=== PATIENT | female | born 1985 | race Caucasian/White ===

== ENCOUNTER 2017-01-05 10:40 | Emergency (ER) | payer SELFPAY ==
[2017-01-05 11:48] LABS: Basophils % (Auto) 0.3 % (0.0-1.8); Hematocrit 35.2 % (30.3-42.9); Hemoglobin 11.1 gm/dl (10.1-14.3); Mean Corpuscular HGB Conc 32 % (30-34); Mean Corpuscular Volume 72 fl (79-97); Platelet Count 161 K/mm3 (140-440); Red Blood Count 4.93 M/mm3 (3.65-5.03); Red Cell Distribution Width 14.7 % (13.2-15.2); White Blood Count 9.9 K/mm3 (4.5-11.0)
[2017-01-05 11:51] LABS: Mean Corpuscular Hemoglobin 23 pg (28-32)
[2017-01-05 12:02] LABS: Anion Gap 16 mmol/L; Blood Urea Nitrogen 9 mg/dL (7-17); Carbon Dioxide 22 mmol/L (22-30); Chloride 102.7 mmol/L (98-107); Glucose 82 mg/dL (65-100); Potassium 3.6 mmol/L (3.6-5.0); Sodium 137 mmol/L (137-145)
[2017-01-05 14:27] LABS: Bilirubin,Urine NEG (Negative); Blood,Urine NEG (Negative); Ketones,Urine NEG (Negative); Leukocyte Esterase,Urine MOD (Negative); Mucus,Urine 2+ /HPF; Nitrite,Urine NEG (Negative); Urobilinogen,Urine < 2.0 mg/dL (<2.0)
[2017-01-05] MEDS ORDERED: ZOFRAN ODT PO ONE (17:11)
--- NOTE | 2017-01-05 17:11 | Emergency Department Report ---
HPI - General Chief Complaint: Fever Time Seen by Provider: 01/05/17 16:20 - HPI HPI: Patient is a 31-year-old female presents to ED complaining of nausea 1 week. Patient states she is unable to keep most fluids down or water. She states her last miss her period was 10/27/2016. Patient states she did not think anything about it. She has a history of abnormal menstrual cycles. Patient denies fevers/chills/vomiting/chest pain/abdominal pain/vaginal bleeding or vaginal discharge ED Past Medical Hx - Past Medical History Previous Medical History?: No - Surgical History Past Surgical History?: No - Social History Smoking Status: Never Smoker Substance Use Type: None - Medications Home Medications: Home Medications Medication Instructions Recorded Confirmed Last Taken Type Acetaminophen [Acetaminophen TAB] 500 mg PO Q6HR #30 tablet 01/05/17 Unknown Rx Doxylamine/Pyridoxine HCl 2 each PO QHS #40 tablet. 01/05/17 Unknown Rx [Diclegis Dr 10-10 mg Tablet] Pnv95/Ferrous Fumarate/FA 1 each PO DAILY #40 tablet 01/05/17 Unknown Rx [ Formula Tablet] ED Review of Systems ROS: Stated complaint: FEVER & NAUSEA Other details as noted in HPI Constitutional: denies: chills, fever Eyes: denies: eye pain, eye discharge, vision change ENT: denies: ear pain, throat pain Respiratory: denies: cough, shortness of breath, wheezing Cardiovascular: denies: chest pain, palpitations Endocrine: no symptoms reported Gastrointestinal: denies: abdominal pain, nausea, diarrhea Genitourinary: denies: urgency, dysuria, discharge Musculoskeletal: denies: back pain, joint swelling, arthralgia Skin: denies: rash, lesions Neurological: denies: headache, weakness, paresthesias Psychiatric: denies: anxiety, depression Hematological/Lymphatic: denies: easy bleeding, easy bruising Physical Exam - Physical Exam Vital Signs: Vital Signs 01/05/17 11:11 Temperature 97.5 F L Pulse Rate 76 Respiratory 18 Rate Blood Pressure 103/63 O2 Sat by Pulse 100 Oximetry Physical Exam: GENERAL: Alert and oriented x3, no apparent distress, Normal Gait, atraumatic. HEAD: Head is normocephalic and a-traumatic. EYES: Extra ocular muscles are intact. Pupils are equal, round, and reactive to light and accommodation. EARS: symetrical, atraumatic, non tender, ear canal clear and moderate cerumen, tympanic membrance non inflamed. gross auditory nml bilaterally. MOUTH:Mouth is well hydrated and one cold sore lesion at upper right lip. Tonsils nonerythematous or swollen, Uvula midline, Tongue not elevated. Mucous membranes are moist. Posterior pharynx clear, no exudate or lesions. Patent airways. NECK: Supple. Non edematous, No lymphadenopathy or thyromegaly. No C-spine tenderness LUNGS: Symetrical with respiration, No wheezing, no rales or crackles, CTAB. HEART: S1, S2 present, regular rate and rhythm without murmur, no rubs, no gallops. Non tender to palpation ABDOMEN: No organomegaly was noted,Positive bowel sounds, soft, and non- distended. . Nontender to palpation on all Quadrants, NO CVA tenderness. SKIN: Warm and dry, No lesions, No ulceration or induration present. ED Course Vital Signs 01/05/17 11:11 Temperature 97.5 F L Pulse Rate 76 Respiratory 18 Rate Blood Pressure 103/63 O2 Sat by Pulse 100 Oximetry ED Medical Decision Making - Lab Data Result diagrams: 01/05/17 11:20 01/05/17 11:20 Laboratory Last Values WBC 9.9 K/mm3 (4.5-11.0) 01/05/17 11:20 RBC 4.93 M/mm3 (3.65-5.03) 01/05/17 11:20 Hgb 11.1 gm/dl (10.1-14.3) 01/05/17 11:20 Hct 35.2 % (30.3-42.9) 01/05/17 11:20 MCV 72 fl (79-97) L 01/05/17 11:20 MCH 23 pg (28-32) L 01/05/17 11:20 MCHC 32 % (30-34) 01/05/17 11:20 RDW 14.7 % (13.2-15.2) 01/05/17 11:20 Plt Count 161 K/mm3 (140-440) 01/05/17 11:20 Lymph % (Auto) 24.5 % (13.4-35.0) 01/05/17 11:20 [place] % (Auto) 7.7 % (0.0-7.3) H 01/05/17 11:20 Eos % (Auto) 1.0 % (0.0-4.3) 01/05/17 11:20 Baso % (Auto) 0.3 % (0.0-1.8) 01/05/17 11:20 Lymph # 2.4 K/mm3 (1.2-5.4) 01/05/17 11:20 [place] # 0.8 K/mm3 (0.0-0.8) 01/05/17 11:20 Eos # 0.1 K/mm3 (0.0-0.4) 01/05/17 11:20 Baso # 0.0 K/mm3 (0.0-0.1) 01/05/17 11:20 Seg Neutrophils % 66.5 % (40.0-70.0) 01/05/17 11:20 Seg Neutrophils # 6.6 K/mm3 (1.8-7.7) 01/05/17 11:20 Sodium 137 mmol/L (137-145) 01/05/17 11:20 Potassium 3.6 mmol/L (3.6-5.0) 01/05/17 11:20 Chloride 102.7 mmol/L (98-107) 01/05/17 11:20 Carbon Dioxide 22 mmol/L (22-30) 01/05/17 11:20 Anion Gap 16 mmol/L 01/05/17 11:20 BUN 9 mg/dL (7-17) 01/05/17 11:20 Creatinine 0.6 mg/dL (0.7-1.2) L 01/05/17 11:20 Estimated GFR > 60 ml/min 01/05/17 11:20 BUN/Creatinine Ratio 15.00 % 01/05/17 11:20 Glucose 82 mg/dL (65-100) 01/05/17 11:20 Calcium 9.0 mg/dL (8.4-10.2) 01/05/17 11:20 HCG, Quant 168492 mIU/mL (0-4) H 01/05/17 17:47 Urine Color Tia (Yellow) 01/05/17 Unknown Urine Turbidity Cloudy (Clear) 01/05/17 Unknown Urine pH 5.0 (5.0-7.0) 01/05/17 Unknown Ur Specific [place] 1.032 (1.003-1.030) H 01/05/17 Unknown Urine Protein 30 mg/dl mg/dL (Negative) 01/05/17 Unknown Urine Glucose (UA) Neg mg/dL (Negative) 01/05/17 Unknown Urine Ketones Neg mg/dL (Negative) 01/05/17 Unknown Urine Blood Neg (Negative) 01/05/17 Unknown Urine Nitrite Neg (Negative) 01/05/17 Unknown Ur Reducing Substances Not Reportable 01/05/17 Unknown Urine Bilirubin Neg (Negative) 01/05/17 Unknown Urine Ictotest Not Reportable 01/05/17 Unknown Urine Urobilinogen < 2.0 mg/dL (<2.0) 01/05/17 Unknown Ur Leukocyte Esterase Mod (Negative) 01/05/17 Unknown Urine WBC (Auto) 3.0 /HPF (0.0-6.0) 01/05/17 Unknown Urine RBC (Auto) 7.0 /HPF (0.0-6.0) 01/05/17 Unknown U Epithel Cells (Auto) 36.0 /HPF (0-13.0) H 01/05/17 Unknown Urine Mucus 2+ /HPF 01/05/17 Unknown Urine HCG, Qual Positive (Negative) A 01/05/17 Unknown - Medical Decision Making This is a 31-year-old female who presents to ED with incidental finding ED course: CBC, BMP, urinalysis, urine presents to test all ordered. test positive, although otherwise within normal limits Beta quantitative ordered beta quantitative was 166,000. Discussed findings with the patient. Discussed with patient to follow up with PARTS DELIVERY DRIVER. Discussed with the patient that at any point if she starts to experience vaginal bleeding or spotting to return to ED. Discussed with the patient start taking vitamins, and Tylenol as that if her pain discussed the patient will need to increase fluids to 8-10 glasses a day. Final Signs are normal, patient is in no acute distress Critical care attestation.: If time is entered above; I have spent that time in minutes in the direct care of this critically ill patient, excluding procedure time. ED Disposition Clinical Impression: , incidental Disposition: DC-01 TO HOME OR SELFCARE Is pt being admited?: No Does the pt Need Aspirin: No Condition: Stable Instructions: Morning Sickness (ED), (ED) Prescriptions: Doxylamine/Pyridoxine HCl [Milagros Ha 10-10 mg Tablet] 2 each PO QHS #40 tablet. Acetaminophen [Acetaminophen TAB] 500 mg PO Q6HR #30 tablet Pnv95/Ferrous Fumarate/FA [ Formula Tablet] 1 each PO DAILY #40 tablet Referrals: PRIMARY CAREMD [Primary Care Provider] - 3-5 Days JAKE MATIAS MD [Referring] - 3-5 Days MARNI RUST MD [Referring] - 3-5 Days JOSE RUST MD [Staff Physician] - 3-5 Days CATE RUST MD [Referring] - 3-5 Days Forms: Work/School Release Form(ED) Time of Disposition: 17:56
[2017-01-05 18:16] VITALS: BP 106/56
== END 2017-01-05 18:17 | disposition home or self-care (01) ==
LOC: ED 10:40
DX: Z33.1 Pregnant state, incidental (principal)
CPT/HCPCS: 36415; 80048; 81001; 81025; 84702; 85025; 99283; Q0162

== ENCOUNTER 2019-03-20 16:35 | Emergency (ER) | payer SELFPAY ==
[2019-03-20 17:57] LABS: Basophils % (Auto) 0.4 % (0.0-1.8); Eosinophils % (Auto) 0.3 % (0.0-4.3); Hematocrit 33.2 % (30.3-42.9); Hemoglobin 10.7 gm/dl (10.1-14.3); Lymphocytes # (Auto) 1.4 K/mm3 (1.2-5.4); Lymphocytes % (Auto) 16.6 % (13.4-35.0); Mean Corpuscular HGB Conc 32 % (30-34); Mean Corpuscular Volume 73 fl (79-97); Monocytes # (Auto) 0.5 K/mm3 (0.0-0.8); Platelet Count 169 K/mm3 (140-440); Red Blood Count 4.55 M/mm3 (3.65-5.03); Red Cell Distribution Width 15.1 % (13.2-15.2)
[2019-03-20] MEDS ORDERED: ONDANSETRON 4 MG ODT TAB PO PRN (18:08)
[2019-03-20] MEDS ORDERED: SODIUM CHLORIDE 0.9% 1000 ML 2,000 ML IV ONE (18:08)
--- NOTE | 2019-03-20 18:09 | Emergency Department Report ---
ED General Adult HPI - General Chief complaint: Vaginal Bleeding Stated complaint: MISCARRIAGE Time Seen by Provider: 03/20/19 17:24 Source: patient, EMS (EMS documentation not available at the time of chart dictation) Mode of arrival: Stretcher Limitations: Other (patient speaking very softly. Patient is a poor historian. Patient had a panic attack during her history and physical) - History of Present Illness Initial comments: The patient is a 33-year-old female. She indicates that she is 3, para 2. 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 She presents to the ER with a complaint of vaginal bleeding and "I'm having a miscarriage." The patient denied physical pain. The patient was a very poor historian. The patient was not able to describe exacerbating or relieving factors. Collateral information obtained from family indicates that there is no trauma. The patient denied urinary symptoms. Severity scale (0 -10): 0 Quality: other Consistency: other Improves with: other Worsens with: other Associated Symptoms: other - Related Data Previous Rx's Medication Instructions Recorded Last Taken Type Acetaminophen [Acetaminophen TAB] 500 mg PO Q6HR #30 tablet 01/05/17 Unknown Rx Doxylamine Succinate/Vit B6 2 each PO QHS #40 tablet. 01/05/17 Unknown Rx [Milagros Ha 10-10 mg Tablet] Pnv No.95/Ferrous Fum/Folic AC 1 each PO DAILY #40 tablet 01/05/17 Unknown Rx [ Formula Tablet] Allergies Allergy/AdvReac Type Severity Reaction Status Date / Time No Known Allergies Allergy Unverified 01/05/17 11:11 ED Review of Systems ROS: Stated complaint: MISCARRIAGE Other details as noted in HPI Constitutional: malaise Eyes: as per HPI ENT: as per HPI Respiratory: see HPI Cardiovascular: as per HPI Endocrine: see HPI Gastrointestinal: as per HPI Genitourinary: as per HPI, abnormal menses Musculoskeletal: as per HPI Skin: as per HPI Neurological: as per HPI, weakness Psychiatric: anxiety ED Past Medical Hx - Past Medical History Previous Medical History?: No - Surgical History Past Surgical History?: No - Social History Smoking Status: Never Smoker Substance Use Type: None - Medications Home Medications: Home Medications Medication Instructions Recorded Confirmed Last Taken Type Acetaminophen [Acetaminophen TAB] 500 mg PO Q6HR #30 tablet 01/05/17 Unknown Rx Doxylamine Succinate/Vit B6 2 each PO QHS #40 tablet. 01/05/17 Unknown Rx [Diclegis Dr 10-10 mg Tablet] Pnv No.95/Ferrous Fum/Folic AC 1 each PO DAILY #40 tablet 01/05/17 Unknown Rx [ Formula Tablet] ED Physical Exam - General Limitations: Other (during the entire history and physical examination, I am non destructive tester and escorted by nurse Saida Fitzpatrick) General appearance: alert, in no apparent distress - Head Head exam: Present: atraumatic, normocephalic - Eye Eye exam: Present: normal appearance, EOMI. Absent: nystagmus - ENT ENT exam: Present: normal exam, normal orophraynx, mucous membranes moist, n ormal external ear exam - Neck Neck exam: Present: normal inspection, full ROM. Absent: tenderness, meningismus - Respiratory Respiratory exam: Present: normal lung sounds bilaterally. Absent: respiratory distress - Cardiovascular Cardiovascular Exam: Present: regular rate, normal rhythm, normal heart sounds. Absent: bradycardia, tachycardia, irregular rhythm, systolic murmur, diastolic murmur, rubs, gallop - GI/Abdominal GI/Abdominal exam: Present: soft. Absent: distended, tenderness, guarding, rebound, rigid, pulsatile mass - External exam: Present: normal external exam, bleeding. Absent: erythema, swelling, lesions, lacerations Speculum exam: Present: normal speculum exam, vaginal bleeding. Absent: erythema, vaginal discharge Bi-manual exam: Absent: cervical motion tendernes, adnexal tenderness, adnexal mass - Extremities Exam Extremities exam: Present: normal inspection, full ROM, other (2+ pulses noted in the bilateral upper, lower extremities. There is no long bony tenderness. The muscular compartments are soft. The pelvis is stable.). Absent: pedal edema, calf tenderness - Back Exam Back exam: Present: normal inspection. Absent: tenderness, CVA tenderness (R), CVA tenderness (L), paraspinal tenderness, vertebral tenderness - Neurological Exam Neurological exam: Present: alert, other (the patient is alert to name. The patient follows commands. There is no facial droop. Patient speaking in com plete sentences, although very softly. The tongue is midline. Phonation within normal limits otherwise. Moving 4 extremities spontaneously. Sensation intact to light touch in 4 extremities.) - Psychiatric Psychiatric exam: Present: anxious - Skin Skin exam: Present: warm, dry, intact, normal color. Absent: rash ED Course Vital Signs 03/20/19 03/20/19 03/20/19 16:44 17:58 18:00 Temperature 97.6 F Pulse Rate 93 H 90 85 Respiratory 18 24 26 H Rate Blood Pressure Blood Pressure 91/63 [Right] O2 Sat by Pulse 97 99 99 Oximetry 03/20/19 03/20/19 03/20/19 18:16 18:30 18:46 Temperature Pulse Rate 144 H 98 H 104 H Respiratory 46 H 14 19 Rate Blood Pressure Blood Pressure [Right] O2 Sat by Pulse 100 100 99 Oximetry 03/20/19 03/20/19 03/20/19 19:00 19:16 19:30 Temperature Pulse Rate 105 H 132 H 99 H Respiratory 33 H 41 H 45 H Rate Blood Pressure Blood Pressure [Right] O2 Sat by Pulse 99 100 100 Oximetry 03/20/19 03/20/19 03/20/19 19:34 19:37 19:46 Temperature 99.5 F Pulse Rate 99 H 95 H Respiratory 22 22 28 H Rate Blood Pressure 123/71 Blood Pressure 123/83 [Right] O2 Sat by Pulse 100 100 100 Oximetry 03/20/19 03/20/19 03/20/19 20:57 21:00 21:16 Temperature Pulse Rate 99 H 98 H 94 H Respiratory 26 H 28 H 18 Rate Blood Pressure 110/77 110/77 106/71 Blood Pressure [Right] O2 Sat by Pulse 100 99 99 Oximetry 03/20/19 03/20/19 03/20/19 21:30 21:46 22:00 Temperature Pulse Rate 103 H 108 H 111 H Respiratory 17 20 21 Rate Blood Pressure 107/66 106/68 111/77 Blood Pressure [Right] O2 Sat by Pulse 99 98 99 Oximetry 03/20/19 03/20/19 03/20/19 22:16 22:30 22:46 Temperature Pulse Rate 99 H 107 H 126 H Respiratory 23 21 20 Rate Blood Pressure 111/69 101/74 103/76 Blood Pressure [Right] O2 Sat by Pulse 99 99 99 Oximetry - Reevaluation(s) Reevaluation #1: 03/20/19 20:05 Differential diagnosis, including but not limited to: Miscarriage, ectopic preg aiyana, panic attack, conversion disorder Assessment and plan: 33-year-old female who reports that she is and bleeding, not having abdominal pain, who appears to be having a panic attack. T he patient is speaking very softly, and then has periods of hyperventilation. She was moving 4 extremities during my examination. However, she was not forthcoming with her information, and she had to be repeatedly counseled to actively participate in her history and physical examination. I appreciate that she endorsed that she couldn't feel her legs, however, on my exam, she was moving her bilateral lower extremities, and had sensation intact to light touch and pinch. Highly suspect conversion disorder and/or panic attack. Patient is found to be Rh+. Ultrasound pending at this time. Reevaluation #2: 03/20/19 22:59 Patient quite anxious, this was alleviated with Ativan. During her gynecologic examination I was chaperoned and escorted by nurse Saida Fitzpatrick Ultrasound does not demonstrate intrauterine or extrauterine . Patient most likely experiencing complete miscarriage. One back and discussed this with patient. She verbalizes understanding. She appears to be much more calm and lucid. She is currently eating food and in no significant distress. Reevaluation #3: 03/20/19 23:00 heart rate 105 bpm ED Medical Decision Making - Lab Data Result diagrams: 03/20/19 17:46 03/20/19 18:25 Vital Signs 03/20/19 03/20/19 03/20/19 16:44 19:34 19:37 Temperature 97.6 F 99.5 F Pulse Rate 93 H 99 H Respiratory 18 22 22 Rate Blood Pressure 91/63 123/83 [Right] O2 Sat by Pulse 97 100 100 Oximetry Lab Results 03/20/19 03/20/19 03/20/19 Range/Units 17:36 17:36 17:43 WBC (4.5-11.0) K/mm3 RBC (3.65-5.03) M/mm3 Hgb (10.1-14.3) gm/dl Hct (30.3-42.9) % MCV (79-97) fl MCH (28-32) pg MCHC (30-34) % RDW (13.2-15.2) % Plt Count (140-440) K/mm3 Lymph % (Auto) (13.4-35.0) % [place] % (Auto) (0.0-7.3) % Eos % (Auto) (0.0-4.3) % Baso % (Auto) (0.0-1.8) % Lymph # (1.2-5.4) K/mm3 [place] # (0.0-0.8) K/mm3 Eos # (0.0-0.4) K/mm3 Baso # (0.0-0.1) K/mm3 Seg Neutrophils % (40.0-70.0) % Seg Neutrophils # (1.8-7.7) K/mm3 Sodium (137-145) mmol/L Potassium (3.6-5.0) mmol/L Chloride (98-107) mmol/L Carbon Dioxide (22-30) mmol/L Anion Gap mmol/L BUN (7-17) mg/dL Creatinine (0.7-1.2) mg/dL Estimated GFR ml/min BUN/Creatinine Ratio % Glucose (65-100) mg/dL Calcium (8.4-10.2) mg/dL TSH (0.270-4.200) mlU/mL HCG, Qual Positive (Negative) HCG, Quant 37138 H (0-4) mIU/mL Salicylates (2.8-20.0) mg/dL Acetaminophen (10.0-30.0) ug/mL Plasma/Serum Alcohol (0-0.07) % Blood Type B POSITIVE 03/20/19 03/20/19 03/20/19 Range/Units 17:46 18:25 18:25 WBC 8.6 (4.5-11.0) K/mm3 RBC 4.55 (3.65-5.03) M/mm3 Hgb 10.7 (10.1-14.3) gm/dl Hct 33.2 (30.3-42.9) % MCV 73 L (79-97) fl MCH 24 L (28-32) pg MCHC 32 (30-34) % RDW 15.1 (13.2-15.2) % Plt Count 169 (140-440) K/mm3 Lymph % (Auto) 16.6 (13.4-35.0) % [place] % (Auto) 6.0 (0.0-7.3) % Eos % (Auto) 0.3 (0.0-4.3) % Baso % (Auto) 0.4 (0.0-1.8) % Lymph # 1.4 (1.2-5.4) K/mm3 [place] # 0.5 (0.0-0.8) K/mm3 Eos # 0.0 (0.0-0.4) K/mm3 Baso # 0.0 (0.0-0.1) K/mm3 Seg Neutrophils % 76.7 H (40.0-70.0) % Seg Neutrophils # 6.6 (1.8-7.7) K/mm3 Sodium 138 (137-145) mmol/L Potassium 3.6 (3.6-5.0) mmol/L Chloride 107.7 H (98-107) mmol/L Carbon Dioxide 19 L (22-30) mmol/L Anion Gap 15 mmol/L BUN 8 (7-17) mg/dL Creatinine 0.7 (0.7-1.2) mg/dL Estimated GFR > 60 ml/min BUN/Creatinine Ratio 11 % Glucose 88 (65-100) mg/dL Calcium 8.6 (8.4-10.2) mg/dL TSH 1.770 (0.270-4.200) mlU/mL HCG, Qual (Negative) HCG, Quant (0-4) mIU/mL Salicylates (2.8-20.0) mg/dL Acetaminophen (10.0-30.0) ug/mL Plasma/Serum Alcohol (0-0.07) % Blood Type 03/20/19 03/20/19 03/20/19 Range/Units 18:25 18:25 18:25 WBC (4.5-11.0) K/mm3 RBC (3.65-5.03) M/mm3 Hgb (10.1-14.3) gm/dl Hct (30.3-42.9) % MCV (79-97) fl MCH (28-32) pg MCHC (30-34) % RDW (13.2-15.2) % Plt Count (140-440) K/mm3 Lymph % (Auto) (13.4-35.0) % [place] % (Auto) (0.0-7.3) % Eos % (Auto) (0.0-4.3) % Baso % (Auto) (0.0-1.8) % Lymph # (1.2-5.4) K/mm3 [place] # (0.0-0.8) K/mm3 Eos # (0.0-0.4) K/mm3 Baso # (0.0-0.1) K/mm3 Seg Neutrophils % (40.0-70.0) % Seg Neutrophils # (1.8-7.7) K/mm3 Sodium (137-145) mmol/L Potassium (3.6-5.0) mmol/L Chloride (98-107) mmol/L Carbon Dioxide (22-30) mmol/L Anion Gap mmol/L BUN (7-17) mg/dL Creatinine (0.7-1.2) mg/dL Estimated GFR ml/min BUN/Creatinine Ratio % Glucose (65-100) mg/dL Calcium (8.4-10.2) mg/dL TSH (0.270-4.200) mlU/mL HCG, Qual (Negative) HCG, Quant (0-4) mIU/mL Salicylates < 0.3 L (2.8-20.0) mg/dL Acetaminophen < 5.0 L (10.0-30.0) ug/mL Plasma/Serum Alcohol < 0.01 (0-0.07) % Blood Type 03/20/19 Range/Units 18:31 WBC (4.5-11.0) K/mm3 RBC (3.65-5.03) M/mm3 Hgb (10.1-14.3) gm/dl Hct (30.3-42.9) % MCV (79-97) fl MCH (28-32) pg MCHC (30-34) % RDW (13.2-15.2) % Plt Count (140-440) K/mm3 Lymph % (Auto) (13.4-35.0) % [place] % (Auto) (0.0-7.3) % Eos % (Auto) (0.0-4.3) % Baso % (Auto) (0.0-1.8) % Lymph # (1.2-5.4) K/mm3 [place] # (0.0-0.8) K/mm3 Eos # (0.0-0.4) K/mm3 Baso # (0.0-0.1) K/mm3 Seg Neutrophils % (40.0-70.0) % Seg Neutrophils # (1.8-7.7) K/mm3 Sodium (137-145) mmol/L Potassium (3.6-5.0) mmol/L Chloride (98-107) mmol/L Carbon Dioxide (22-30) mmol/L Anion Gap mmol/L BUN (7-17) mg/dL Creatinine (0.7-1.2) mg/dL Estimated GFR ml/min BUN/Creatinine Ratio % Glucose (65-100) mg/dL Calcium (8.4-10.2) mg/dL TSH (0.270-4.200) mlU/mL HCG, Qual (Negative) HCG, Quant (0-4) mIU/mL Salicylates (2.8-20.0) mg/dL Acetaminophen (10.0-30.0) ug/mL Plasma/Serum Alcohol (0-0.07) % Blood Type B POSITIVE - EKG Data -: EKG Interpreted by Ar EKG shows normal: sinus rhythm Rate: tachycardia - EKG Data 03/20/19 20:08 The EKG is showing a sinus tachycardia, 119 bpm, normal axis, high left ventricular voltage, atrial enlargement, no endorsement of chest pain, the EKG is abnormal, it is not consistent with ST elevation myocardial infarction. - Radiology Data Radiology results: pending, report reviewed, image reviewed Print Report Referring Physician: CARLOS AMNUEL THOMAS Patient Name: QUEEN GENEVA DUPREE Date of : 1985 Sex: Female Report Date: 2019-03-20 Report Status: Finalized Findings [address] Report Signed Patient: QUEEN GENEVA DUPREE MR#: [id number] : 1985 Acct:[id number] Age/Sex: 33 / F ADM Date: 03/20/19 Loc: ED Attending Dr: Ordering Physician: CARLOS MANUEL THOMAS MD Date of Service: 03/20/19 Procedure(s): US OB transvaginal Accession Number(s): [id number] cc: CARLOS MANUEL THOMAS MD OB transvaginal, US OB <= 14 weeks fetus INDICATION / CLINICAL INFORMATION: pregnanct vag bkleed. COMPARISON: None available. FINDINGS: No intrauterine is identified. The ovaries are normal in size and appearance. The uterus is enlarged measuring 15 cm in the endometrial canal is thickened measuring 4.8 cm. IMPRESSION: No intrauterine identified. The uterus is enlarged and the endometrial canal is markedly thickened Signer Name: Esteban Crowley MD FACR Signed: 03/20/2019 9:16 PM Workstation Name: [id number] Transcribed By: MS Dictated By: Esteban Crowley MD Electronically Authenticated By: Esteban Crowley MD Signed Date/Time: 03/20/192115 DD/ 13 TD/TT: Critical care attestation.: If time is entered above; I have spent that time in minutes in the direct care of this critically ill patient, excluding procedure time. ED Disposition Clinical Impression: Miscarriage Disposition: DC-01 TO HOME OR SELFCARE Is pt being admited?: No Does the pt Need Aspirin: No Condition: Stable Instructions: Spontaneous Miscarriage (ED) Additional Instructions: Rest, avoid heavy lifting, and avoid strenuous physical activities. Do not have sex until cleared to do so by a associate director finance. Follow-up in 2 days for repeat checkup and evaluation. Patient may follow up with any of the listed gynecology specialist, her primary care doctor, an urgent care center, or she may return to the emergency room. Patient will likely continue to have bleeding and cramping, this is expected. Patient may take [id number] Tylenol and Motrin alternating as needed for pain and discomfort. Return to the emergency room right away with [place], worsens or different symptoms, bleeding more than 2 pads soaked per hour, lightheadedness, stress of breath, loss of consciousness. Referrals: [facility] [Primary Care Provider] - 3-5 Days [facility] [Provider Group] - 3-5 Days [facility] [Provider Group] - 3-5 Days [facility] [Provider Group] - 3-5 Days
[2019-03-20 19:51] LABS: BUN/Creatinine Ratio 11; Blood Urea Nitrogen 8 mg/dL (7-17); Calcium 8.6 mg/dL (8.4-10.2); Hemolysis Index 13
--- NOTE | 2019-03-20 21:20 | Ultrasound Report ---
US OB transvaginal, US OB <= 14 weeks fetus INDICATION / CLINICAL INFORMATION: pregnanct vag bkleed. COMPARISON: None available. FINDINGS: No intrauterine is identified. The ovaries are normal in size and appearance. The uterus is enlarged measuring 15 cm in the endometrial canal is thickened measuring 4.8 cm. IMPRESSION: No intrauterine identified. The uterus is enlarged and the endometrial canal is markedly th ickened Signer Name: Esteban Crowley MD FACR Signed: 03/20/2019 9:16 PM Workstation Name: [id number]
[2019-03-20] MEDS ORDERED: LORazepam 2 MG/ML VIAL IV ONE (21:55)
[2019-03-20 23:16] VITALS: BP 108/72
== END 2019-03-20 23:17 | disposition home or self-care (01) ==
LOC: ED 16:35
DX: O03.9 Complete or unspecified spontaneous abortion without complication (principal); Z79.899 Other long term (current) drug therapy
CPT/HCPCS: 36415; 76801; 76817; 80048; 84443; 84702; 84703; 85025; 86850; 86900; 86901; 93005; 93010; 96374; 99285; J2060; J7030; 80320; G0480

== ENCOUNTER 2020-04-15 09:43 | Emergency (ER) | payer SELFPAY ==
[2020-04-15 09:58] VITALS: BP 126/84
--- NOTE | 2020-04-15 13:08 | Emergency Department Report ---
ED General Adult HPI - General Chief complaint: Abdominal Pain Stated complaint: 10 WKS/6 DAYS /NOT MOVIN Time Seen by Provider: 04/15/20 13:01 Source: patient Mode of arrival: Ambulatory Limitations: No Limitations - History of Present Illness Initial comments: Patient states that she is about 11 weeks and has had some intermittent lower abdominal cramping pain since yesterday without vaginal bleeding, discharge, dysuria. Onset gradual, severity moderate, no modifying factors. - Related Data Previous Rx's Medication Instructions Recorded Last Taken Type Acetaminophen [Acetaminophen TAB] 500 mg PO Q6HR #30 tablet 01/05/17 Unknown Rx Doxylamine Succinate/Vit B6 2 each PO QHS #40 tablet. 01/05/17 Unknown Rx [Milagros Ha 10-10 mg Tablet] Pnv No.95/Ferrous Fum/Folic AC 1 each PO DAILY #40 tablet 01/05/17 Unknown Rx [ Formula Tablet] Allergies Allergy/AdvReac Type Severity Reaction Status Date / Time No Known Allergies Allergy Unverified 01/05/17 11:11 ED Review of Systems ROS: Stated complaint: 10 WKS/6 DAYS /NOT MOVIN Other details as noted in HPI Comment: All other systems reviewed and negative Genitourinary: as per HPI ED Past Medical Hx - Past Medical History Previous Medical History?: No - Surgical History Past Surgical History?: No - Social History Smoking Status: Never Smoker Substance Use Type: None - Medications Home Medications: Home Medications Medication Instructions Recorded Confirmed Last Taken Type Acetaminophen [Acetaminophen TAB] 500 mg PO Q6HR #30 tablet 01/05/17 Unknown Rx Doxylamine Succinate/Vit B6 2 each PO QHS #40 tablet. 01/05/17 Unknown Rx [Milagros Ha 10-10 mg Tablet] Pnv No.95/Ferrous Fum/Folic AC 1 each PO DAILY #40 tablet 01/05/17 Unknown Rx [ Formula Tablet] ED Physical Exam - General Limitations: No Limitations General appearance: alert, in no apparent distress - Head Head exam: Present: atraumatic, normocephalic - Eye Eye exam: Present: normal appearance - ENT ENT exam: Present: mucous membranes moist - Neck Neck exam: Present: normal inspection - Respiratory Respiratory exam: Present: normal lung sounds bilaterally. Absent: respiratory distress - Cardiovascular Cardiovascular Exam: Present: regular rate, normal rhythm. Absent: systolic murmur, diastolic murmur, rubs, gallop - GI/Abdominal GI/Abdominal exam: Present: soft, tenderness (Minimal suprapubic), normal bowel sounds. Absent: distended, guarding - Extremities Exam Extremities exam: Present: normal inspection - Back Exam Back exam: Present: normal inspection - Neurological Exam Neurological exam: Present: alert, oriented X3 - Psychiatric Psychiatric exam: Present: normal affect, normal mood - Skin Skin exam: Present: warm, dry, intact, normal color. Absent: rash ED Course Vital Signs 04/15/20 09:47 Temperature 98.5 F Pulse Rate 81 Respiratory 20 Rate Blood Pressure 126/84 O2 Sat by Pulse 100 Oximetry ED Medical Decision Making - Radiology Data Radiology results: report reviewed Single viable intrauterine without abnormality noted - Medical Decision Making Patient presents at 11 weeks gestation with intermittent pelvic cramping since yesterday. No bleeding, no discharge. No dysuria. Exam reveals some minimal suprapubic tenderness. Labs and ultrasound to be obtained. UA without significant infection, ultrasound shows a single viable 8-week 5-day without obvious complication. Discussed with the patient pelvic rest and outpatient [facility] follow-up. Return precautions given. - Differential Diagnosis Threatened miscarriage, UTI Critical care attestation.: If time is entered above; I have spent that time in minutes in the direct care of this critically ill patient, excluding procedure time. ED Disposition Clinical Impression: Pelvic pain in patient at less than 20 weeks gestation Disposition: TO HOME OR SELFCARE Is pt being admited?: No Condition: Stable Instructions: Abdominal Pain (ED), Pelvic Pain, Female Additional Instructions: Your hCG level is within normal range today, your urinalysis does not show any evidence of infection. Your ultrasound shows a normal 8-week 5-day intrauterine without obvious abnormality. We recommend that you abstain from sex and follow pelvic rest protocol until outpatient follow-up with [facility] [facility]. Referrals: ARNOL CANTOR [Other] - 3-5 Days KAPLI SCHULTE MD [Staff Physician] - 3-5 Days Time of Disposition: 15:49
--- NOTE | 2020-04-15 14:41 | Ultrasound Report ---
[facility] HISTORY: Provided clinical history of pelvic pain. COMPARISON: None. TECHNIQUE: Routine transabdominal and transvaginal OB ultrasound performed. FINDINGS: Uterus: Mildly enlarged measuring 11.2 x 7.0 x 9.7 cm. Gestational Sac: Well-defined oval shape and intrauterine in location. Yolk Sac: Normal in appearance. Fetus/Embryo: [place]-rump length of 0.2 cm, corresponding to an estimated gestational age of 8 weeks a nd 5 days. Embryonic/ anatomy is too small for evaluation. Embryonic/ cardiac activity: 177bpm Placenta: Too small for evaluation. Amniotic fluid volume: Subjectively appropriate for gestational age. Ovaries: The right ovary is normal in size and appearance with normal blood flow, measuring 3.4 x 1. 9 x 2.1 cm. The left ovary is normal in size and appearance with normal blood flow, measuring 3.9 x 2.1 x 4.6 cm. Corpus luteum is not definitively visualized. Additional findings: None. IMPRESSION Early live intrauterine with estimated gestational age of 8 weeks and 5 days. Signer Name: Thanh Ochoa MD Signed: 04/15/2020 2:37 PM Workstation Name: [id number]
--- NOTE | 2020-04-15 14:41 | Ultrasound Report ---
[facility] HISTORY: Provided clinical history of pelvic pain. COMPARISON: None. TECHNIQUE: Routine transabdominal and transvaginal OB ultrasound performed. FINDINGS: Uterus: Mildly enlarged measuring 11.2 x 7.0 x 9.7 cm. Gestational Sac: Well-defined oval shape and intrauterine in location. Yolk Sac: Normal in appearance. Fetus/Embryo: [place]-rump length of 0.2 cm, corresponding to an estimated gestational age of 8 weeks a nd 5 days. Embryonic/ anatomy is too small for evaluation. Embryonic/ cardiac activity: 177bpm Placenta: Too small for evaluation. Amniotic fluid volume: Subjectively appropriate for gestational age. Ovaries: The right ovary is normal in size and appearance with normal blood flow, measuring 3.4 x 1. 9 x 2.1 cm. The left ovary is normal in size and appearance with normal blood flow, measuring 3.9 x 2.1 x 4.6 cm. Corpus luteum is not definitively visualized. Additional findings: None. IMPRESSION Early live intrauterine with estimated gestational age of 8 weeks and 5 days. Signer Name: Thanh Ochoa MD Signed: 04/15/2020 2:37 PM Workstation Name: [id number]
[2020-04-15 15:30] LABS: Bilirubin,Urine NEG (Negative); Blood,Urine NEG (Negative); Color,Urine Yellow (Yellow); Mucus,Urine FEW /HPF; Urobilinogen,Urine < 2.0 mg/dL (<2.0)
== END 2020-04-15 16:08 | disposition home or self-care (01) ==
LOC: ED 09:43
DX: O26.891 Other specified pregnancy related conditions, first trimester (principal); R10.2 Pelvic and perineal pain; Z3A.10 10 weeks gestation of pregnancy; Z79.899 Other long term (current) drug therapy
CPT/HCPCS: 36415; 76801; 76817; 81001; 84702; 86900; 86901